=== PATIENT | male | born 1965 | race Caucasian/White ===

== ENCOUNTER 2017-03-11 05:40 | Outpatient (CLI) | payer BC ==
[~2017-03-11] VITALS: Ht 188 cm; Wt 105.2 kg
== END 2017-03-11 11:16 ==
LOC: PREOP 05:40
PROVIDERS: ATTEND Surgery
DX: Z01.818 Encounter for other preprocedural examination (principal); Z12.11 Encounter for screening for malignant neoplasm of colon; Z80.0 Family history of malignant neoplasm of digestive organs

== ENCOUNTER 2017-03-15 08:02 | Day surgery (SDC) | payer BC ==
[~2017-03-15] VITALS: Ht 188 cm; Wt 105.2 kg
[2017-03-15] MEDS ORDERED: NS IV 500 ML 500 ML IV ONE (08:15)
[2017-03-15] MEDS ORDERED: NS IV 500 ML 500 ML ONE (08:21)
[2017-03-15 08:30] VITALS: BP 134/85
[2017-03-15] MEDS ORDERED: fentaNYL INJECTION 100 MCG/2 ML AMP ONE ×2 (09:19)
[2017-03-15] MEDS ORDERED: MIDAZOLAM 2 MG/2 ML (VERSED) VIAL ONE ×4 (09:20)
--- NOTE | 2017-03-15 09:24 | History & Physicial ---
History of Present Illness History of Present Illness Reason for visit/HPI to undergo screening colonoscopy. Reports a family history of colon cancer. Date of Admission Date Seen by Provider: Mar 15, 2017 Time Seen by Provider: 09:23 I consulted on this patient on 03/15/17 09:23 Attending Physician Segun Marcelo MD Admitting Physician Kristy Mills MD Consult Allergies and Home Medications Allergies Coded Allergies: Sulfa (Sulfonamide Antibiotics) (Verified Allergy, Unknown, paralyzed him , 03/11/17) levofloxacin (Verified Allergy, Unknown, paralyzed him, 03/11/17) Home Medications No Active Prescriptions or Reported Meds Past Htmnxmu-[id number]-Lmmwgj Hx Patient Social History Alcohol Use: Denies Use Recreational Drug Use: No Smoking Status: Never a Smoker Recent Foreign Travel: No Contact w/other who traveled: No Recent Hopitalizations: No Recent Infectious Disease Expo: No Seasonal Allergies Seasonal Allergies: Yes Surgeries HX Surgeries: Yes (UD, ) Surgeries: Appendectomy, Tonsillectomy Respiratory Hx Respiratory Disorders: No Cardiovascular Hx Cardiovascular Disorders: No Neurological Hx Neurological Disorders: No Genitourinary Hx Genitourinary Disorders: No Gastrointestinal Hx Gastrointestinal Disorders: No Musculoskeletal Hx Musculoskeletal Disorders: Yes Musculoskeletal Disorders: Arthritis Endocrine Hx Endocrine Disorders: No HEENT HX ENT Disorders: No Cancer Hx Cancer: No Psychosocial Hx Psychiatric Problems: No Integumentary HX Skin/Integumentary Disorder: Yes (right leg ulcer) Blood Transfusions Hx Blood Disorders: No Constitutional: no symptoms reported EENTM: no symptoms reported Respiratory: no symptoms reported Cardiovascular: no symptoms reported Gastrointestinal: no symptoms reported Genitourinary: no symptoms reported Musculoskeletal: no symptoms reported Skin: no symptoms reported Psychiatric/Neurological: No Symptoms Reported Physical Exam Vital Signs Vital Sign - Last 12Hours 03/15/17 08:30 Temp 97.9 Pulse 56 Resp 18 B/P (MAP) 134/85 Pulse Ox 95 O2 Delivery Room Air Capillary Refill : General Appearance: No Apparent Distress HEENT: Normal ENT Inspection Neck: Normal Inspection Respiratory: Lungs Clear Cardiovascular: Regular Rate, Rhythm Gastrointestinal: Non Tender, Soft Rectal: Deferred Extremity: Normal Inspection Neurologic/Psychiatric: Alert, Oriented x3 Skin: Warm/Dry Assessment/Plan Assessment and Plan gentleman here to undergo screening colonoscopy. Positive family history. Procedure details discussed thoroughly and is willing to proceed. Problems: SEGUN MARCELO MD Mar 15, 2017 9:24 am
--- NOTE | 2017-03-15 09:25 | Conscious Sedation/ASA ---
Conscious Sedation Pre-Proced Time Reviewed: 09:24 ASA Class: 2 Airway Mallampati Classification: ([place] appropriate class) I. II. III, IV Lungs Heart ASA score ASA 1: a normal healthy patient ASA 2: a patient with a mild systemic disease (mid diabetes, controlled hypertension, obesity ASA 3: a patient with a severe systemic disease that limits activity (angina , COPD, prior Myocardial infarction) ASA 4: a patient with an incapacitating disease that is a constant threat to life (CHF, renal failure) ASA 5: a moribund patient not expected to survive 24 hrs. (ruptured aneurysm) ASA 6: a declared brain patient whose organs are being harvested. For emergent operations, add the letter E after the classification Grade 2 Sedation Plan: Discussed options with patient/fam Note The patient is an appropriate candidate to undergo the planned procedure, sedation, and anesthesia. The patient immediately re-assessed prior to indication. SEGUN BROWNING MD Mar 15, 2017 9:25 am
[2017-03-15] MEDS: fentaNYL INJECTION 100 MCG/2 ML AMP IVP PRN ×2 (09:37→09:41)
[2017-03-15] MEDS: MIDAZOLAM 2 MG/2 ML (VERSED) VIAL IVP PRN ×2 (09:38→09:43)
--- NOTE | 2017-03-15 09:57 | Endo Procedure Record ---
Endo Procedure Report Date of Procedure Mar 15, 2017 Surgeon (s) SEGUN BROWNING MD Post Procedure/Op Diagnosis very few sigmoid diverticula Procedure Performed colonoscopy to cecum Description of Procedure Anesthesia Type: Conscious Sedation Specimen(s) collected/removed none Description of the Procedure Indication for the procedure: this gentleman, with a family history of colon cancer, came in for screening colonoscopy. Informed consent was obtained after reviewing the procedure in detail. Description of procedure: He was placed in left lateral rectus position and his vital signs were monitored. Conscious sedation was achieved using Versed and fentanyl.digital rectal examination was unremarkable. The colonoscope was then introduced into the rectum and advanced all the way up to cecum. The scope was then withdrawn slowly and the mucosa examined in a systematic fashion. Finding: Very few sigmoid diverticula. No polyps were found He tolerated the procedure well and was taken back to the nursing area in a stable condition Impression: Screening colonoscopy. Positive family history. No polyps. Recommend repeating in 5 years. Copies To: ALEXANDRU BENZ MD, XAVIER M MD Mar 15, 2017 9:57 am
--- NOTE | 2017-03-15 09:57 | Discharge Inst-Simple/Standard ---
Discharge Inst-Standard Discharge Medications New, Converted or Re-Newed RX: Other Patient Instructions/Follow Up Plan of Care/Instructions/FU: repeat colonoscopy in 5 years Activity as Tolerated: Yes Discharge Diet: No Restrictions SEGUN BROWNING MD Mar 15, 2017 9:57 am
[2017-03-15 10:15] VITALS: BP 103/57
[2017-03-15 10:45] VITALS: BP 122/64
[2017-03-15 11:10] VITALS: BP 122/64
== END 2017-03-15 11:10 | disposition home or self-care (01) ==
LOC: ENDO 08:02
PROVIDERS: ATTEND Surgery
DX: Z12.11 Encounter for screening for malignant neoplasm of colon (principal); Z80.0 Family history of malignant neoplasm of digestive organs; K57.30 Diverticulosis of large intestine without perforation or abscess without bleeding

== ENCOUNTER 2017-03-15 13:23 | Outpatient (RCR) | payer BC | END 2017-03-15 16:00 | disposition home or self-care (01) | LOC: WOUNDCARE 13:23 | PROVIDERS: ATTEND Surgery | DX: L97.312 Non-pressure chronic ulcer of right ankle with fat layer exposed (principal); I87.311 Chronic venous hypertension (idiopathic) with ulcer of right lower extremity | CPT/HCPCS: 11042; 29581 ==

== ENCOUNTER → 2017-03-22 | Outpatient (CLI) | payer BC | LOC: WOUNDCARE 14:22 | PROVIDERS: ATTEND Surgery | DX: L97.312 Non-pressure chronic ulcer of right ankle with fat layer exposed (principal); I87.311 Chronic venous hypertension (idiopathic) with ulcer of right lower extremity | CPT/HCPCS: 29581 ==

== ENCOUNTER → 2017-03-29 | Outpatient (CLI) | payer BC | LOC: WOUNDCARE 14:19 | PROVIDERS: ATTEND Surgery | DX: L97.312 Non-pressure chronic ulcer of right ankle with fat layer exposed (principal); I87.311 Chronic venous hypertension (idiopathic) with ulcer of right lower extremity | CPT/HCPCS: 29581 ==

== ENCOUNTER → 2017-04-05 | Outpatient (CLI) | payer BC | LOC: WOUNDCARE 08:14 | PROVIDERS: ATTEND Nurse Practitioner | DX: I87.311 Chronic venous hypertension (idiopathic) with ulcer of right lower extremity (principal); L97.312 Non-pressure chronic ulcer of right ankle with fat layer exposed | CPT/HCPCS: 99212 ==

== ENCOUNTER → 2017-04-14 | Outpatient (CLI) | payer BC | LOC: WOUNDCARE 10:00 | PROVIDERS: ATTEND Surgery | DX: I89.0 Lymphedema, not elsewhere classified (principal); I87.311 Chronic venous hypertension (idiopathic) with ulcer of right lower extremity | CPT/HCPCS: 99212 ==